=== PATIENT | male | born 1995 | race Caucasian/White ===

== ENCOUNTER 2016-07-21 00:51 | Emergency (ER) | payer MEDICAID ==
[~2016-07-21] VITALS: Ht 182.9 cm; Wt 76.2 kg
[~2016-07-21 00:51] MED LIST: PHE100C PO
[2016-07-21 01:05] VITALS: BP 117/71
[2016-07-21] MEDS ORDERED: diphenhdrAMINE HCL 25 MG CAP PO ONE (01:30)
[2016-07-21] MEDS ORDERED: DEXAMETHASONE 4 MG TAB PO ONE (01:30)
== END 2016-07-21 09:10 | disposition left against medical advice (07) ==
LOC: ER 01:00
DX: R21 Rash and other nonspecific skin eruption (principal); Z53.21 Procedure and treatment not carried out due to patient leaving prior to being seen by health care provider

== ENCOUNTER 2017-12-20 16:53 | Inpatient (IN) | payer MEDICAID ==
[~2017-12-20] VITALS: Ht 182.9 cm; Wt 124.9 kg
[2017-12-20] MEDS ORDERED: ONDANSETRON HCL 4 MG/2 ML VIAL IV ONE ×2 (17:30→20:30)
[2017-12-20] MEDS ORDERED: MORPHINE SULFATE 4 MG/ML SYR/VIAL IV ONE ×2 (17:30→20:30)
[2017-12-20] MEDS ORDERED: SODIUM CHLORIDE 0.9% 1,000 ML IV ONE (17:30)
[2017-12-20 18:19] LABS: Basophils # (auto) 0.1 uL; Basophils % (auto) 0.4 % (0.0-2.0); Eosinophils # (auto) 0 uL; Eosinophils % (auto) 0.2 % (0.0-7.0); Hematocrit 44.3 % (41.0-53.0); Lymphocytes # (auto) 1.5 uL; Lymphocytes % (auto) 9.6 % (10.0-50.0); Mean Corpuscular Hgb Conc. 33.7 g/dL (32.0-36.0); Mean Corpuscular Volume 88.8 fL (80.0-100.0); Monocytes # (auto) 0.9 uL; Monocytes % (auto) 6.2 % (0.0-12.0); Neutrophils # (auto) 12.8 uL; Neutrophils % (auto) 83.6 % (37.0-80.0); Nucleated Red Blood Cells % 0.1 %; Platelet Count (auto) 260 10^3/uL (140-450); Red Blood Cells 4.99 10^6/uL (4.5-5.90); Red Cell Distribution Width 13.1 % (11.8-14.3); White Blood Cell 15.3 10^3/uL (4.4-10.8)
[2017-12-20 18:22] LABS: Urine Bacteria NONE SEEN /hpf (None Seen); Urine Blood Negative /uL (Negative); Urine Mucus FEW (None Seen); Urine WBC <1 /hpf (0 - 3)
[2017-12-20 18:32] LABS: INR 0.95 (0.9-1.15); Partial Thromboplastin Time 30.9 sec (23.78-33.04); Prothrombin Time 10.2 sec (9.27-12.13)
[2017-12-20 18:33] LABS: Albumin 3.8 g/dL (3.4-5.0); BUN/Creatinine Ratio 17.1; Bilirubin, Total 0.5 mg/dL (0.2-1.0); Calcium 8.3 mg/dL (8.5-10.1); Potassium 3.6 mmol/L (3.5-5.1); Total Protein 7.5 g/dL (6.4-8.2)
[2017-12-20] MEDS ORDERED: cefTRIAXone 1GM/10ml IVPUSH 10 ML IV ONE (18:45)
[2017-12-20] MEDS ORDERED: ACETAMINOPHEN 325 MG TAB PO PRN (20:45)
[2017-12-20] MEDS ORDERED: TEMAZEPAM 15 MG CAP PO PRN (20:45)
[2017-12-20] MEDS ORDERED: PANTOPRAZOLE 40 MG/10 ML VIAL IV ONE (20:45)
[2017-12-20] MEDS ORDERED: ONDANSETRON HCL 4 MG/2 ML VIAL IV PRN (20:45)
[2017-12-20] MEDS ORDERED: LIDOCAINE 1% HCL (LOCAL ANESTH.) INJ 20ML MDV ONE (21:51)
[2017-12-20] MEDS ORDERED: BUPIVACAINE 0.25% INJ 50ML VIAL ONE (21:51)
[2017-12-20] MEDS ORDERED: metroNIDAZOLE 500MG/100ML 100 ML IV SCH (22:00)
[2017-12-20] MEDS: PHENYTOIN SODIUM 100 MG CAP PO SCH (22:00)
[2017-12-20] MEDS ORDERED: SUCCINYLCHOLINE CHLORIDE 20 MG/ML 10ML VIAL IV ONE (22:09)
[2017-12-20] MEDS ORDERED: KETOROLAC TROMETH 60MG/2ML VIAL IM ONE (22:11)
[2017-12-20] MEDS ORDERED: ONDANSETRON HCL 4 MG/2 ML VIAL ONE (22:11)
[2017-12-20] MEDS ORDERED: PROPOFOL 10 MG/ML 20 ML IV ONE ×2 (22:11→23:03)
[2017-12-20] MEDS ORDERED: DEXAMETHASONE SOD PHOS 10MG/1ML VIAL INJ ONE (22:11)
[2017-12-20] MEDS ORDERED: LIDOCAINE 2% (LOCAL ANESTH.) PF 5ml SDV ONE (22:11)
[2017-12-20] MEDS ORDERED: fentaNYL CITRATE 100 MCG/2 ML VL ONE (22:13)
[2017-12-20] MEDS ORDERED: cefTRIAXone 1GM/50ML D5W 50 ML IV ONE (22:25)
[2017-12-21] VITALS (8 sets, daily range): BP systolic 108–137; BP diastolic 54–75
[2017-12-21] MEDS ORDERED: LABETALOL HCL 5 MG/ML 4ML SYRINGE IV PRN
[2017-12-21] MEDS ORDERED: NALOXONE HCL 0.4 MG/ML VIAL IV PRN
[2017-12-21] MEDS ORDERED: HYDROmorphone HCL 2 MG/ML VL IV PRN
[2017-12-21] MEDS ORDERED: ONDANSETRON HCL 4 MG/2 ML VIAL IV ONE
[2017-12-21] MEDS: HYDROmorphone HCL 2 MG/ML VL IV PRN ×4 (00:03→00:33)
[2017-12-21] MEDS ORDERED: HYDROmorphone HCL 2 MG/ML VL ONE (00:03)
[2017-12-21] MEDS: SODIUM CHLORIDE 0.9% 1,000 ML IV SCH ×3 (01:11→18:45)
[2017-12-21] MEDS: MORPHINE SULFATE 4 MG/ML SYR/VIAL IV PRN ×5 (03:06→20:45)
[2017-12-21] MEDS: PHENYTOIN SODIUM 100 MG CAP PO SCH ×3 (06:00→22:00)
[2017-12-21 06:23] LABS: Basophils # (auto) 0 uL; Basophils % (auto) 0.1 % (0.0-2.0); Eosinophils # (auto) 0 uL; Hematocrit 42.3 % (41.0-53.0); Hemoglobin 14.8 g/dL (13.5-17.5); Lymphocytes # (auto) 0.7 uL; Lymphocytes % (auto) 5.7 % (10.0-50.0); Mean Corpuscular Hemoglobin 31.3 pg (28.0-32.0); Mean Corpuscular Volume 89.3 fL (80.0-100.0); Monocytes # (auto) 0.2 uL; Monocytes % (auto) 1.7 % (0.0-12.0); Neutrophils # (auto) 11.5 uL; Neutrophils % (auto) 92.5 % (37.0-80.0); Platelet Count (auto) 229 10^3/uL (140-450); Red Blood Cells 4.73 10^6/uL (4.5-5.90); White Blood Cell 12.4 10^3/uL (4.4-10.8)
[2017-12-21 06:43] LABS: Albumin 3.5 g/dL (3.4-5.0); BUN/Creatinine Ratio 17.1; Calcium 8.5 mg/dL (8.5-10.1); Potassium 4.3 mmol/L (3.5-5.1)
[2017-12-21 06:46] LABS: Bilirubin, Total 0.7 mg/dL (0.2-1.0); Total Protein 7.4 g/dL (6.4-8.2)
[2017-12-21] MEDS: metroNIDAZOLE 500MG/100ML 100 ML IV SCH ×2 (10:10→16:25)
[2017-12-21] MEDS: HYDROcodone-ACET 5/325MG TAB PO PRN (10:11)
[2017-12-21] MEDS: PANTOPRAZOLE 40 MG/10 ML VIAL IV SCH (10:12)
[2017-12-21] MEDS: cefTRIAXone 1GM/10ml IVPUSH 10 ML IV SCH (10:12)
[2017-12-22] MEDS: metroNIDAZOLE 500MG/100ML 100 ML IV SCH ×3 (01:06→16:31)
[2017-12-22 05:29] VITALS: BP 110/57
[2017-12-22] MEDS: PHENYTOIN SODIUM 100 MG CAP PO SCH ×3 (06:00→20:31)
[2017-12-22] MEDS: SODIUM CHLORIDE 0.9% 1,000 ML IV SCH ×2 (06:06→12:51)
[2017-12-22 08:00] VITALS: BP 103/59
[2017-12-22] MEDS: cefTRIAXone 1GM/10ml IVPUSH 10 ML IV SCH (08:19)
[2017-12-22] MEDS: MORPHINE SULFATE 4 MG/ML SYR/VIAL IV PRN ×4 (08:20→20:34)
[2017-12-22 08:22] VITALS: BP 103/59
[2017-12-22] MEDS: PANTOPRAZOLE 40 MG/10 ML VIAL IV SCH (09:26)
[2017-12-22 12:07] VITALS: BP 116/44
[2017-12-22 16:23] VITALS: BP 114/55
[2017-12-22 21:45] VITALS: BP 107/65
[2017-12-23] MEDS: metroNIDAZOLE 500MG/100ML 100 ML IV SCH ×2 (01:00→08:30)
[2017-12-23] MEDS: SODIUM CHLORIDE 0.9% 1,000 ML IV SCH ×2 (02:59→15:53)
[2017-12-23] MEDS: MORPHINE SULFATE 4 MG/ML SYR/VIAL IV PRN ×3 (03:02→13:35)
[2017-12-23] MEDS: PHENYTOIN SODIUM 100 MG CAP PO SCH ×2 (04:06→11:52)
[2017-12-23 04:55] VITALS: BP 89/45
[2017-12-23 05:34] LABS: Basophils # (auto) 0 uL; Basophils % (auto) 0.4 % (0.0-2.0); Eosinophils # (auto) 0 uL; Eosinophils % (auto) 0.7 % (0.0-7.0); Hematocrit 40.9 % (41.0-53.0); Hemoglobin 13.9 g/dL (13.5-17.5); Lymphocytes # (auto) 2.9 uL; Lymphocytes % (auto) 41.9 % (10.0-50.0); Mean Corpuscular Hemoglobin 30.8 pg (28.0-32.0); Mean Corpuscular Hgb Conc. 34.1 g/dL (32.0-36.0); Mean Corpuscular Volume 90.3 fL (80.0-100.0); Monocytes # (auto) 0.6 uL; Monocytes % (auto) 9.4 % (0.0-12.0); Neutrophils # (auto) 3.2 uL; Neutrophils % (auto) 47.6 % (37.0-80.0); Nucleated Red Blood Cells % 0.2 %; Platelet Count (auto) 235 10^3/uL (140-450); Red Blood Cells 4.52 10^6/uL (4.5-5.90); White Blood Cell 6.8 10^3/uL (4.4-10.8)
[2017-12-23 06:01] LABS: Calcium 8.1 mg/dL (8.5-10.1); Potassium 4.2 mmol/L (3.5-5.1)
[2017-12-23] MEDS: cefTRIAXone 1GM/10ml IVPUSH 10 ML IV SCH (08:32)
[2017-12-23 09:00] VITALS: BP 116/66
[2017-12-23] MEDS: PANTOPRAZOLE 40 MG/10 ML VIAL IV SCH (11:04)
[2017-12-23] MEDS: HYDROcodone-ACET 5/325MG TAB PO PRN (11:42)
[2017-12-23 13:00] VITALS: BP 109/69
== END 2017-12-23 15:45 | disposition home or self-care (01) | DRG 710 ==
LOC: EDBD 16:53 → ER 16:58 → OVERFLOW 16:59 → EAST 12-21 00:45
PROVIDERS: ADMIT Nurse Practitioner; ATTEND Internal Medicine
PROC: 0W9G4ZZ Drainage of Peritoneal Cavity, Percutaneous Endoscopic Approach (ICD-10-PCS; 2017-12-20)
PROC: 0DTJ4ZZ Resection of Appendix, Percutaneous Endoscopic Approach (ICD-10-PCS; principal; 2017-12-20 22:25)
DX: A41.9 Sepsis, unspecified organism (principal); K35.3 Acute appendicitis with localized peritonitis; R56.9 Unspecified convulsions; K76.0 Fatty (change of) liver, not elsewhere classified; F17.210 Nicotine dependence, cigarettes, uncomplicated; Z82.0 Family history of epilepsy and other diseases of the nervous system; E83.51 Hypocalcemia
CPT/HCPCS: 36415; 71046; 74176; 80048; 80053; 81001; 82150; 83690; 85025; 85610; 85730; 94761; 96374; 96375; 96376; A6257; C9113; J0330; J0696; J1100; J1885; J2001; J2405; J2704; J3490

== ENCOUNTER 2018-01-26 21:10 | Emergency (ER) | payer MEDICAID ==
[~2018-01-26] VITALS: Ht 182.9 cm; Wt 117.9 kg
[2018-01-26 21:40] VITALS: BP 124/76
== END 2018-01-27 02:48 | disposition home or self-care (01) ==
LOC: ER 21:10
DX: S61.213A Laceration without foreign body of left middle finger without damage to nail, initial encounter (principal); F17.210 Nicotine dependence, cigarettes, uncomplicated; W26.0XXA Contact with knife, initial encounter; Y93.89 Activity, other specified; Y99.8 Other external cause status; Y92.89 Other specified places as the place of occurrence of the external cause
CPT/HCPCS: 12001; 73130

== ENCOUNTER 2021-09-27 11:03 | Emergency (ER) | payer MEDICAID, OTHER ==
[2021-09-27] MEDS ORDERED: levETIRAcetam 500 MG TAB PO ONE (11:30)
[2021-09-27] MEDS ORDERED: HYDROcodone-ACET 5/325MG TAB PO ONE (13:15)
[2021-09-27] MEDS ORDERED: KETOROLAC TROMETH 30 MG/ML 1ML VIAL IM ONE (13:15)
[2021-09-27 13:30] VITALS: BP 100/67
[2021-09-27] MEDS ORDERED: LEVE100S4 PO (14:28)
== END 2021-09-27 14:59 | disposition home or self-care (01) ==
LOC: ER 11:03 → EDBD 11:03 → ER 14:55
DX: R56.9 Unspecified convulsions (principal); F17.210 Nicotine dependence, cigarettes, uncomplicated
CPT/HCPCS: 82962; 96372; 99283; J1885

== ENCOUNTER 2023-05-12 17:37 | Emergency (ER) | payer MEDICAID ==
[~2023-05-12] VITALS: Ht 180.3 cm; Wt 128.6 kg
[~2023-05-12 17:37] MED LIST changes: +LEVE100S4 PO; -PHE100C PO
[2023-05-12 19:05] LABS: Urine Bacteria NONE SEEN /hpf (None Seen); Urine Blood Negative /uL (Negative); Urine Clarity Clear (Clear); Urine Color Yellow (Yellow); Urine Mucus FEW (None Seen); Urine Protein, UAD TRACE (Negative); Urine Urobilinogen Normal (Negative); Urine WBC 1 /hpf (0 - 3); Urine pH 5.5 (5.0-8.0)
[2023-05-12 20:19] LABS: Basophils # (auto) 0.1 10 ^3/uL (0-0.2); Basophils % (auto) 0.5 % (0.0-2.0); Eosinophils # (auto) 0.1 10 ^3/uL (0-0.8); Eosinophils % (auto) 0.5 % (0.0-7.0); Hematocrit 48.7 % (41.0-53.0); Hemoglobin 16.2 g/dL (13.5-17.5); Lymphocytes # (auto) 2.5 10 ^3/uL (0.4-5.4); Lymphocytes % (auto) 17.7 % (10.0-50.0); Mean Corpuscular Hemoglobin 29.6 pg (28.0-32.0); Mean Corpuscular Hgb Conc. 33.3 g/dL (32.0-36.0); Monocytes # (auto) 0.7 10 ^3/uL (0-1.3); Neutrophils % (auto) 76.3 % (37.0-80.0); Nucleated Red Blood Cells % 0.4 %; Red Blood Cells 5.47 10^6/uL (4.5-5.90); Red Cell Distribution Width 13.6 % (11.8-14.3); White Blood Cell 14.4 10^3/uL (4.4-10.8)
[2023-05-12 20:32] LABS: Alanine Aminotransferase 49 U/L (7-40); Albumin 5.1 g/dL (3.2-4.8); Alkaline Phosphatase 56 U/L (46-116); Anion Gap 9 (5-15); Aspartate Aminotransferase 41 U/L (13-40); BUN/Creatinine Ratio 10.7 (10.0-20.0); Blood Urea Nitrogen 8 mg/dL (9-23); Calcium 9.9 mg/dL (8.7-10.4); Carbon Dioxide 22 mmol/L (20-30); Chloride 105 mmol/L (98-107); Glucose 93 mg/dL (74-106); Lipase 44 U/L (12-53); Magnesium 2.3 mg/dL (1.6-2.6); Potassium 4.3 mmol/L (3.5-5.1); Sodium 136 mmol/L (136-145)
[2023-05-12 20:33] LABS: Bilirubin, Total 0.6 mg/dL (0.2-1.0); Total Protein 8.2 g/dL (5.7-8.2)
[2023-05-12] MEDS ORDERED: DICY10CA PO (22:28)
[2023-05-12] MEDS ORDERED: ACET-1304 PO (22:28)
[2023-05-12] MEDS ORDERED: METO-281 PO (22:28)
[2023-05-12] MEDS ORDERED: PANT40TA2 PO (22:28)
[2023-05-13] MEDS: IOHEXOL 350 MG/ML 100ML IJ ONE (01:12)
[2023-05-13 01:15] VITALS: BP 129/91; PULSE 77; RESP 22; TEMP 97.1; O2SAT 97
[2023-05-13] MEDS: ONDANSETRON HCL 4 MG/2 ML VIAL IV ONE (01:23)
[2023-05-13] MEDS: HYDROcodone-ACET 10/325MG TAB PO ONE (01:23)
[2023-05-13] MEDS: PANTOPRAZOLE 40 MG/10 ML VIAL INJ IV ONE (01:23)
[2023-05-13] MEDS: SODIUM CHLORIDE 0.9% 1,000 ML IVB ONE (01:23)
== END 2023-05-13 01:29 | disposition home or self-care (01) ==
LOC: ER 17:37
DX: K76.0 Fatty (change of) liver, not elsewhere classified (principal); Z79.899 Other long term (current) drug therapy
CPT/HCPCS: 36415; 74177; 76705; 80053; 81001; 83690; 83735; 85025; 96374; 96375; 99285; C9113; J2405; Q9967